=== PATIENT | male | born 1960 | race Caucasian/White ===

== ENCOUNTER 2016-11-12 04:55 | Inpatient (IN) ==
--- NOTE | 2016-11-07 11:28 | EKG Report ---
Test Performed on : 11/07/2016 11:01:36 AM Test Reason : PAT Blood Pressure : / mmHG Vent. Rate : 090 BPM Atrial Rate : 090 BPM P-R Int : 160 ms QRS Dur : 092 ms QT Int : 348 ms P-R-T Axes : 075 078 067 degrees QTc Int : 425 ms Normal sinus rhythm. Normal ECG No previous ECGs available Confirmed by Mahad John DO ([id number]) on 11/07/2016 5:06:20 PM
[2016-11-07 11:35] LABS: HEMOGLOBIN 14.1 g/dL (14.0-18.0); MCH 30.9 PG (27-31); MCHC 33.6 g/dL (33-37); MCV 91.9 FL (81-99); MPV 9.3 FL (7.4-10.4); RBC 4.57 XMIL (4.7-6.1)
[2016-11-07 11:55] LABS: AGAP 14; BUN 21 mg/dL (8-22); CHLORIDE 94 mmol/L (98-107); COSMO 281; POTASSIUM 5.4 mmol/L (3.5-5.1); SODIUM 134 mmol/L (136-145); TCO2 26 mmol/L (25-35)
[2016-11-12] MEDS ORDERED: KEFZOL 1 GM/D5W 1 GM/50 ML IVPB ONE (06:23)
[2016-11-12] MEDS ORDERED: LR 1,000 ML ONE ×2 (06:24→11:03)
[2016-11-12 07:12] LABS: AGAP 13; BUN 23 mg/dL (8-22); CALCIUM 9.2 mg/dL (8.8-10.2); CHLORIDE 99 mmol/L (98-107); COSMO 289; POTASSIUM 4.2 mmol/L (3.5-5.1); SODIUM 139 mmol/L (136-145); TCO2 27 mmol/L (25-35)
[2016-11-12] MEDS ORDERED: XYLOCAINE-MPF 2% ONE (07:22)
[2016-11-12] MEDS ORDERED: DIPRIVAN 1% ONE (07:22)
[2016-11-12] MEDS ORDERED: SODIUM CHLORIDE 0.9% 10 ML ONE ×2 (07:27→09:31)
[2016-11-12] MEDS ORDERED: NORCURON ONE (07:27)
[2016-11-12] MEDS ORDERED: QUELICIN (DOSE) ONE (07:31)
[2016-11-12] MEDS ORDERED: XYLOCAINE 1%/EPI 1:100,000 ONE (08:16)
[2016-11-12] MEDS ORDERED: MARCAINE 0.25% PF ONE (08:16)
[2016-11-12] MEDS ORDERED: FENTANYL ONE (09:05)
[2016-11-12] MEDS ORDERED: ZOFRAN ONE (09:06)
[2016-11-12] MEDS ORDERED: NEO-SYNEPHRINE ONE (09:31)
[2016-11-12 09:55] LABS: URINE MICRO REVIEW NEEDED? NO; URINE SOURCE CATH
[2016-11-12 10:07] LABS: BILIRUBIN URINE NEGATIVE (NEGATIVE); BLOOD URINE NEGATIVE (NEGATIVE); COLOR YELLOW; GLUCOSE URINE >1000 mg/dL (NEGATIVE); LEUKOCYTES URINE NEGATIVE (NEGATIVE); NITRITE URINE NEGATIVE (NEGATIVE); PH URINE 5.5; PROTEIN URINE NEGATIVE (NEGATIVE); SP GRAVITY URINE 1.026; TURBIDITY URINE CLEAR (CLEAR); UR EPITHELIAL CELLS <10 /HPF (<10); URINE BACTERIA NEGATIVE /HPF; URINE RBC <10 /HPF (<10); URINE WBC <10 /HPF (<10); UROBILINOGEN URINE NORMAL (NORMAL)
[2016-11-12] MEDS ORDERED: TORADOL ONE (10:12)
[2016-11-12] MEDS ORDERED: HUMULIN R SUBQ ONE (11:00)
[2016-11-12] MEDS: MORPHINE ONE ×3 (11:03→11:25)
--- NOTE | 2016-11-12 11:10 | OPERATIVE NOTE ---
PROCEDURE DATE: 11/12/2016 PREOPERATIVE DIAGNOSES: 1. Ventral hernia. 2. Infected exposed of ventral hernia mesh. POSTOPERATIVE DIAGNOSES: 1. Ventral hernia. 2. Infected exposed of ventral hernia mesh. PROCEDURES PERFORMED: 1. Exploratory laparotomy with excision of a portion of abdominal wall and chronically infected mesh. 2. Recurrent ventral hernia repair. 3. Debridement of rectus fascia. ESTIMATED BLOOD LOSS: 50 mL. ANESTHESIA: General. INDICATION: This is a 56-year-old male who had, approximately 7 or 8 years ago , a laparoscopic ventral hernia repair. He had recurrence of this, and has had exposed mesh with purulent drainage for greater than 1 year. He was evaluated by me last week in my office. OPERATIVE FINDINGS: There was what appeared to be a Hancock-Ez type mesh with metal anchors laparoscopically, circumferentially tacked. It was exposed centrally, and bathed in pus medial and laterally. There were some omental adhesions and adhesions of the liver capsule to the midline incision here, but no evidence of enterocutaneous fistula or deep abscess in the abdomen. OPERATIVE NOTE: Risks, benefits, and alternatives were discussed with the patient, and he consented to the procedure. He was seen preoperatively, and surgery to be performed was confirmed. He was taken to the operating room and placed in the supine position. General anesthesia was induced. Hair was removed with clippers. NG tube and a Vann catheter were placed. The abdomen was prepped with Betadine, and draped in the usual fashion. After a time-out was performed, we entered the abdomen with a planned elliptical incision around the chronic wound and exposed mesh. Starting in the midline, we dissected down to hopefully a more virgin area overlying the liver. We did review a CT scan prior to this. We made our elliptical incision with a 15 blade scalpel. We carried it down through the fascia, and entered the abdomen in open controlled fashion. There was liver exposed here, so we felt good about entering the abdomen here, and we dissected down the peritoneal adhesions here to the liver capsule, and we were able to gain access into a relatively adhesion-free portion of the abdominal wall. We did this circumferentially around the mesh. There were some mild adhesions to the underlying mesh, but there was no evidence of viscera adherent here or fistulized to the mesh, and after thoroughly freeing up the mesh, we incised it in its entirety. It was quite ingrown in some places. There were some of the metal anchors that we removed as well, and passed this off. We sent this for permanent pathology and also for bacterial and fungal cultures of the mesh. We debrided the fascia back to healthy fascia in all locations, and there was overall healthy- appearing skin here. After irrigating the abdomen, we closed the fascia with interrupted #1 PDS sutures along the midline. There was no undue tension here, and the fascia was reasonably healthy. We then irrigated the superficial wound. We change our gloves prior to wound closure, and then loosely closed with adrian, and packed iodoform gauze in the . ABD and tape dressing was applied. He tolerated the procedure well. We removed his NG tube, but kept his Vann catheter at the end of the case. Counts were correct x2. He tolerated the procedure well. I spoke with the family. He was transferred to recovery. Will plan to admit him for observation. cc: Cachorro Sanford MD MTDD
[2016-11-12] MEDS ORDERED: MORPHINE IV PRN (11:56)
[2016-11-12] MEDS ORDERED: ZOFRAN IV PRN (11:56)
[2016-11-12] MEDS: LR 1,000 ML IV SCH ×2 (12:10→22:39)
[2016-11-12] MEDS: ZOSYN 3.375 GM in NS 50 ML IV SCH ×2 (12:40→18:39)
[2016-11-12] MEDS: HUMULIN R SUBQ SCH ×3 (14:04→22:40)
[2016-11-12] MEDS: NORCO-10 PO PRN (14:05)
[2016-11-12] MEDS: PERIDEX MT SCH (22:39)
[2016-11-13] MEDS: ZOSYN 3.375 GM in NS 50 ML IV SCH ×5 (01:29→23:55)
[2016-11-13] MEDS: NORCO-10 PO PRN ×4 (04:24→23:55)
[2016-11-13 05:18] LABS: MANUAL DIFF NEEDED? NO
[2016-11-13 05:24] LABS: BASO% 0.2 % (0.0-0.8); EOS# 0.45 X1000 (0.0-0.7); EOS% 3.7 % (0.0-10.0); HEMATOCRIT 38.3 % (42.0-52.0); HEMOGLOBIN 12.6 g/dL (14.0-18.0); LYMPH# 1.05 X1000 (1.2-3.4); LYMPH% 8.7 % (20.5-51.1); MCH 31.3 PG (27-31); MCHC 32.9 g/dL (33-37); MCV 95.3 FL (81-99); MONO# 0.85 X1000 (0.11-0.59); MPV 10.1 FL (7.4-10.4); NEUT% 80.4 % (42.2-75.2); PLT 216 X1000 (130-400); RBC 4.02 XMIL (4.7-6.1)
[2016-11-13 05:45] LABS: AGAP 14; BUN 22 mg/dL (8-22); CALCIUM 8.7 mg/dL (8.8-10.2); CHLORIDE 97 mmol/L (98-107); COSMO 284; POTASSIUM 4.6 mmol/L (3.5-5.1); SODIUM 137 mmol/L (136-145); TCO2 26 mmol/L (25-35)
[2016-11-13] MEDS: LR 1,000 ML IV SCH ×3 (06:33→23:55)
[2016-11-13] MEDS: HUMULIN R SUBQ SCH ×4 (06:33→20:14)
[2016-11-13] MEDS ORDERED: NEXIUM PO SCH (09:00)
[2016-11-13] MEDS ORDERED: LOVENOX SUBQ SCH (09:00)
[2016-11-13] MEDS ORDERED: LANTUS SUBQ SCH ×2 (09:00→21:00)
--- NOTE | 2016-11-13 09:37 | PROGRESS NOTE ---
DATE: 11/13/2016 SUBJECTIVE: Feels well. Pain is controlled. The Vann catheter was removed and he is happy about that. Otherwise, he is tolerating some liquids overnight. PHYSICAL EXAMINATION: Vital Signs: He is afebrile. Heart rate has been in the 90s to 100s, 107 currently. Blood pressure 139/62, O2 saturation 98% on 2 L. General: He is alert, in no acute distress. Abdomen: Soft, appropriately tender. Dressing is clean, dry, and intact. Normal drainage. LABORATORY DATA: White count is up to 12, hematocrit 38. Creatinine 0.9. Glucose has been in the 200s but 217 most recently. MICROBIOLOGY: Gram-negative rods growing out of his abdominal cultures and numerous white cells. ASSESSMENT AND PLAN: A 56-year-old male, status post excision of exposed infected ventral hernia mesh with primary ventral hernia repair. Type 1 diabetic, heavy smoker. His Vann is out. Will keep his fluids going. Advance his diet. Resume half his home dose Lantus and continue sliding scale. Keep the Zosyn on pending his final wound cultures and plan to transition to oral antibiotics. I do not think he has got any residual infection after surgery yesterday, but will continue to monitor. He is on deep venous thrombosis and PPI prophylaxis. cc: Cachorro Sanford MD
[2016-11-13] MEDS ORDERED: INSULIN PEN NEEDLES ONE (10:04)
[2016-11-13] MEDS: PERIDEX MT SCH ×2 (10:10→20:14)
[2016-11-13] MEDS ORDERED: NICODERM PATCH TD ONE (17:57)
[2016-11-14] MEDS: HUMULIN R SUBQ SCH (06:35)
[2016-11-14] MEDS: LR 1,000 ML IV SCH (06:35)
[2016-11-14] MEDS: ZOSYN 3.375 GM in NS 50 ML IV SCH (06:35)
--- NOTE | 2016-11-14 08:21 | DISCHARGE SUMMARY ---
ADMISSION DATE: 11/12/2016 DISCHARGE DATE: 11/14/2016 SUBJECTIVE: He feels well. Minimal pain, controlled with oral medicines. He is passing gas, tolerating a diet. OBJECTIVE: Vital Signs: No fevers on the day prior to his discharge. Temperature is 98.5 this morning, pulse 92, blood pressure 162/84, oxygen saturation 96% on room air. General: He is alert, in no acute distress. Abdomen: Soft, appropriately tender. Incision is intact with healthy bleeding tissue noted. There is no cellulitis. No evidence of recurrent hernia or dehiscence. LABORATORY DATA: Nothing new today, other than a blood sugar of 204. Urine output has been good. HOSPITAL COURSE: This is a 56-year-old male who has had a hernia repair many years ago, and for the last year has had exposed and infected mesh at the midline. Excision was indicated, and primary ventral hernia repair. He was seen on the day of his surgery, and was cleared by Anesthesia for his planned surgery, which is excision of abdominal mesh with primary ventral hernia repair, and he underwent this successfully. He was continued on Zosyn postoperatively pending cultures, and did well. His diet was advanced; he tolerated this. Vann catheter was removed, and he was able to void, and he was tolerating a GI soft diet. His microbiology culture showed gram-negative rods growing from the wound mesh cultures, but we do not have speciation and sensitivity yet. DISPOSITION: Home to self-care. DISCHARGE CONDITION: Good. DISCHARGE INSTRUCTIONS: He will call with any fevers, worsening abdominal pain, nausea, vomiting, erythema, or increasing drainage from his wound. He will continue his binder at all times. Shower and keep the wound clean and dry. I have given him a prescription for [place], Colace, a refill for his Lantus, which he takes chronically, and Augmentin based off the gram-negative rods cultures. I have instructed him that I will call him with the sensitivities, and we may need to adjust this going forward. He will avoid heavy lifting greater than 10 pounds. FOLLOWUP: Followup appointment is with me in 1 week. I have encouraged him to obtain a primary care physician as he is in between currently. cc: Cachorro Sanford MD
== END 2016-11-14 10:02 | disposition home or self-care (01) ==
LOC: SURHOLD 04:55 → 4N 10:49
PROVIDERS: ADMIT Surgery; ATTEND Surgery